=== PATIENT | male | born 1945 | race Caucasian/White ===

== ENCOUNTER 2016-04-02 11:53 | Emergency (ER) | payer MEDICARE ==
[2016-04-02 12:13] VITALS: BP 138/75
--- NOTE | 2016-04-02 13:52 | ERNOTE ---
ER Male HPI Date of Service: 04/02/16 Stated Complaint: CATH IS NOT STAYING TOGETHER IT IS LEAKING ER Male: other - Leaking catalan catheter Time Seen by Provider: 04/02/16 12:59 Source: patient, RN notes reviewed, past records Exam Limitations: no limitations Immunizations: IMMUNIZATION HX Immunizations Up to Date Yes History of Influenza Vaccine No Hx Pneumococcal Vaccination No Allergies/Adverse Reactions: Allergies Tetanus Vaccines & Toxoid Allergy (Unknown, Verified 04/02/16 12:13) Penicillins Allergy (Verified 04/02/16 12:13) amoxicillin trihydrate [From Augmentin] Adverse Reaction (Mild, Verified 12:13) Nausea potassium clavulanate [From Augmentin] Adverse Reaction (Mild, Verified 12:13) Nausea Home Medications: HOME MEDICATIONS Cholecalciferol (Vitamin D3) [Vitamin D3] 2,000 unit PO DAILY 05/21/15 [Last Taken 03/03/16 07:00] Multivitamins [Multivitamin Rowena] 1 cap PO DAILY 05/21/15 [Last Taken Unknown] Aspirin 325 mg PO DAILY 02/27/16 [Last Taken 03/03/16 07:00] Ferrous Sulfate [Iron] 325 mg PO DAILY 02/27/16 [Last Taken 03/03/16 07:00 325 MG] Insulin Aspart [Novolog] 4 unit SQ AC 02/27/16 [Last Taken 03/02/16 11:30] Insulin Glargine,Hum.rec.anlog [Lantus] 20 units SC HS 02/27/16 [Last Taken 21:00] L. Acidophilus/Pectin, [place] [Acidophilus Capsule] 1 each PO DAILY 02/27/16 [ Last Taken 03/03/16 07:00 1 TABLET] Megestrol Acetate [Megace] 40 mg PO BID 02/27/16 [Last Taken 03/03/16 07:00] Polyethylene Glycol 3350 [Miralax] 17 gm PO BID 02/27/16 [Last Taken 03/03/16 07 :00] Sodium Bicarbonate 1,300 mg PO TID 02/27/16 [Last Taken 03/03/16 07:00] Sodium Polystyrene Sulfonate [Kalexate] 15 gm PO BID 02/27/16 [Last Taken Unknown] Tamsulosin HCl [Flomax] 0.4 mg PO HS 02/27/16 [Last Taken 03/02/16 21:00] Cyanocobalamin (Vitamin B-12) [Vitamin B-12] 1,000 mcg SL DAILY 03/03/16 [Last Taken 03/03/16 07:00] - Pain Score Pain Score #1 Pain Score: 0 - History of Present Illness Narrative: 70 y/o male ambulatory to ED because his catalan catheter is leaking around the attachment to his leg bag. It is also becoming disconnected frequently. The catheter was last changed here on 03/13/16. It is a #14. He reports not having this problem when he had a larger catheter. Associated Symptoms: Absent: fever/chills, diaphoresis, nausea, vomiting, abdominal pain, dysuria, low back pain Prior Treatment: Present: recently seen Review of Systems - Review of Systems Constitutional: Present: See HPI EYE: Present: no symptoms reported ENT: Present: no symptoms reported Respiratory: Present: no symptoms reported Cardiology: Present: no symptoms reported Gastrointestinal/Abdominal: Present: See HPI Genitourinary: Absent: hematuria, decreased urinary output Musculoskeletal: Present: See HPI Skin: Present: no symptoms reported Neurological: Absent: headache, dizziness/light-headedness, weakness, numbness Endocrine: Present: no symptoms reported Hematologic/Lymphatic: Present: no symptoms reported Psych: Present: no symptoms reported - Patient's Past Medical History Patient History - Medical: Anemia, Diabetes Type 2 Insulin Dependent, Renal Disease, Renal Failure, UTI'S, Other Patient History - Cardiac/Respiratory: Hypertension Patient History - Cancer: No Hx of Cancer Patient History - Surgical Procedures: Other - Family History Mother Family History - Medical: , Diabetes Type 2 Father Family History - Medical: - Social History Living Situations: home Smoking Status: Former smoker Alcohol Use: none Drug Use: none Physical Exam - Physical Exam General Appearance: Present: wd/wn, alert, no apparent distress Respiratory: Present: no respiratory distress, no accessory muscle use Male Genitals Exam: Present: normal genitalia, other - catalan catheter in place, draining clear yellow urine into leg bag Neurological Exam: Present: alert, oriented, normal mood/affect Skin Exam: Present: normal color, warm/dry ED Progress - Vital Signs Patient's Vital Signs:: I have reviewed the patient's vital signs. Vital Signs: Vital Signs 01/20/17 12:10 Temperature 36.6 C Respiratory 16 Rate Blood Pressure 138/75 O2 Sat by Pulse 95 Oximetry - Progress/Reassessment Chief Complaint: Urinary Tract Problems Progress:: Improved Progress Note-Subjective: Catheter removed and replaced with #16 coude tip catheter by nursing staff. Urine draining into bag. Departure Clinical Impression: Catalan catheter problem Qualifiers: Encounter type: sequela Qualified Code(s): T83.9XXS - Unspecified complication of genitourinary prosthetic device, implant and graft, sequela - Departure Disposition: Home Follow Up Needed Condition: Good Instructions: Catalan Catheter Care, Adult Referrals: Carson Serna MD [Primary Care Provider] -
== END 2016-04-02 14:02 | disposition home or self-care (01) ==
LOC: ER 11:53
PROC: 0T9B70Z Drainage of Bladder with Drainage Device, Via Natural or Artificial Opening (ICD-10-PCS; principal; 2016-04-02)
DX: T83.9XXS Unspecified complication of genitourinary prosthetic device, implant and graft, sequela (principal); Z87.891 Personal history of nicotine dependence